=== PATIENT | female | born 1985 | race Caucasian/White ===

== ENCOUNTER 2016-11-30 03:27 | Emergency (ER) | payer SELFPAY ==
[~2016-11-30] VITALS: Ht 160 cm; Wt 127.0 kg
[~2016-11-30 03:27] MED LIST: ALBU17AE26 IH; FLUT1DIS IH
[2016-11-30 03:48] VITALS: BP_SYST 140
--- NOTE | 2016-11-30 03:48 | NUR ---
Pt ambulatory, a/o x 4, c/o SOB for 4 days. Pt stated condition got worse tonight. Pt denied fever. Pt reported chills, nausea and vomiting, denied hematemesis. Pt denied chest pain. Pt took Albuterol, and Flonase without improvement. Pt with shallow breathing, +expiratory wheezing bilaterally. Pt hooked to cont pulse oximeter, 95 to 96% on RA, HOB elevated.
--- NOTE | 2016-11-30 03:48 | NUR ---
Patient to ER bed 6 to gown for evaluation. Side rails up.
[2016-11-30] MEDS ORDERED: ALBU8.5H8 INH (03:54)
--- NOTE | 2016-11-30 04:05 | NUR ---
ER at bedside examining patient.
--- NOTE | 2016-11-30 04:13 | NUR ---
Breathing treatment done at bedside by RT
[2016-11-30] MEDS ORDERED: PREDNISONE 20 MG TABLET PO ONE (04:15)
[2016-11-30] MEDS ORDERED: ALBUTEROL SULFATE 0.083% 2.5 MG/3 ML VIAL.NEB IH ONE (04:15)
[2016-11-30] MEDS ORDERED: IPRATROPIUM BROM 0.5 MG/2.5 ML VIAL.NEB (ATROVENT) IH ONE (04:15)
[2016-11-30 04:50] VITALS: BP_SYST 111
--- NOTE | 2016-11-30 04:50 | NUR ---
Patient given written and verbal discharge instructions and verbalizes understanding. ER MD discussed with patient the results and treatment provided. Patient in stable condition. ID arm band removed. IV catheter removed intact and dressing applied, no active bleeding. Rx of Prednisone 20 mg tab given. Patient educated on pain management and to follow up with PMD. Pain Scale 5/10. Opportunity for questions provided and answered.
== END 2016-11-30 04:50 | disposition home or self-care (01) ==
LOC: SED 03:27
DX: J45.909 Unspecified asthma, uncomplicated (principal); R11.2 Nausea with vomiting, unspecified; E11.9 Type 2 diabetes mellitus without complications; K21.9 Gastro-esophageal reflux disease without esophagitis
CPT/HCPCS: 94640; 99283; J7512